=== PATIENT | female | born 1995 | race African-American/Black ===

== ENCOUNTER 2018-03-12 18:09 | Outpatient (CLI) | payer MEDICAID ==
[~2018-03-12] VITALS: Ht 162.6 cm; Wt 70.0 kg
[2018-03-12 18:00] VITALS: BP 120/59
[2018-03-12 18:53] LABS: MICROSCOPIC INDICATED
== END 2018-03-12 19:21 | disposition home or self-care (01) ==
LOC: LDOP 18:09
PROVIDERS: ATTEND Student in an Organized Health Care Education/Training Program
DX: O62.9 Abnormality of forces of labor, unspecified (principal); O26.893 Other specified pregnancy related conditions, third trimester; M54.9 Dorsalgia, unspecified; Z3A.33 33 weeks gestation of pregnancy
CPT/HCPCS: 36415; 59025; 81001; 82731; 87086; 99211; G0463

== ENCOUNTER 2018-04-15 08:24 | Inpatient (IN) | payer MEDICAID ==
[~2018-04-15] VITALS: Ht 162.6 cm; Wt 73.6 kg
[2018-04-15 08:30] VITALS: BP 113/70
[2018-04-15] MEDS ORDERED: OXYTOCIN 30U/ 0.9% NaCL 500ML 500 ML IV ONE (09:04)
[2018-04-15] MEDS ORDERED: OXYTOCIN 30U/ 0.9% NaCL 500ML 500 ML ONE (09:12)
[2018-04-15] MEDS ORDERED: FENTANYL PF 100 MCG/2ML ONE ×2 (09:12→16:32)
[2018-04-15] MEDS ORDERED: NEWBORN KIT ONE (09:12)
[2018-04-15] MEDS: LACTATED RINGERS 1,000 ML IV SCH ×2 (09:19→14:39)
[2018-04-15] MEDS: FENTANYL PF 100 MCG/2ML IVPush PRN ×2 (09:19→16:35)
[2018-04-15] MEDS ORDERED: FENTANYL PF 100 MCG/2ML IV PRN (09:30)
[2018-04-15] MEDS ORDERED: TERBUTALINE 1 MG/ML, 1ML IVPush PRN (09:30)
[2018-04-15 09:43] LABS: BASOPHILS # (AUTO) 0.01 x10^3/uL (0-0.1); BASOPHILS % (AUTO) 0 % (0-1); EOSINOPHILS # (AUTO) 0.06 x10^3/uL (0-0.4); EOSINOPHILS % (AUTO) 1 % (1-7); LYMPHOCYTES # (AUTO) 0.83 x10^3/uL (1-3.4); LYMPHOCYTES % (AUTO) 14 % (22-44); MD NO; MEAN CORPUSCULAR HEMOGLOBIN 27.3 pg (27.0-34.8); MEAN CORPUSCULAR HGB CONC 32.5 g/dL (32.4-35.8); MEAN PLATELET VOLUME 8.7 fL (7.4-10.4); MONOCYTES # (AUTO) 0.41 x10^3/uL (0.2-0.8); MONOCYTES % (AUTO) 7 % (2-9); NEUTROPHILS # (AUTO) 4.71 x10^3/uL (1.8-6.8); NEUTROPHILS % (AUTO) 78 % (42-75); PLATELET COUNT 294 x10^3/uL (130-400); RED BLOOD COUNT 4.08 x10^6/uL (3.82-5.3); RED CELL DISTRIBUTION WIDTH 15.8 % (9.6-15.2)
[2018-04-15] MEDS ORDERED: D5%-LACTATED RINGERS 1,000 ML IV SCH (10:00)
[2018-04-15] MEDS: OXYTOCIN 30U/ 0.9% NaCL 500ML 500 ML IV SCH (17:52)
[2018-04-15] MEDS ORDERED: MISOPROSTOL 200 MCG TABLET PR PRN (18:00)
[2018-04-15] MEDS ORDERED: GLYCERIN ADULT SUPP PR PRN (18:00)
[2018-04-15] MEDS ORDERED: ACETAMINOPHEN 325 MG TABLET PO PRN (18:00)
[2018-04-15] MEDS ORDERED: CARBOPROST TROMETHAMINE 250 MCG/ML, 1ML IM PRN (18:00)
[2018-04-15] MEDS ORDERED: HYDROcodone/APAP 5/325 TABLET PO PRN (18:00)
[2018-04-15] MEDS ORDERED: IBUPROFEN 800 MG TABLET PO PRN (18:00)
[2018-04-15] MEDS ORDERED: OXYcodone/APAP 5/325MG TABLET PO PRN (18:00)
[2018-04-15] MEDS ORDERED: BISACODYL 10 MG SUPP PR PRN (18:00)
[2018-04-15] MEDS ORDERED: METHYLERGONOVINE 0.2 MG/ML IM PRN (18:00)
[2018-04-15] MEDS ORDERED: IBUPROFEN 600 MG TABLET ONE (18:36)
[2018-04-15] MEDS: IBUPROFEN 600 MG TABLET PO PRN (18:40)
[2018-04-15 20:45] VITALS: BP 108/73
[2018-04-16] MEDS: IBUPROFEN 600 MG TABLET PO PRN ×2 (01:12→08:11)
[2018-04-16 01:15] VITALS: BP 125/72
[2018-04-16 02:13] LABS: BASOPHILS # (AUTO) 0.01 x10^3/uL (0-0.1); BASOPHILS % (AUTO) 0 % (0-1); EOSINOPHILS # (AUTO) 0.08 x10^3/uL (0-0.4); EOSINOPHILS % (AUTO) 1 % (1-7); LYMPHOCYTES # (AUTO) 1.01 x10^3/uL (1-3.4); LYMPHOCYTES % (AUTO) 12 % (22-44); MD NO; MEAN CORPUSCULAR HEMOGLOBIN 27.8 pg (27.0-34.8); MEAN CORPUSCULAR HGB CONC 32.5 g/dL (32.4-35.8); MEAN CORPUSCULAR VOLUME 85.6 fL (80-100); MEAN PLATELET VOLUME 8.6 fL (7.4-10.4); MONOCYTES % (AUTO) 10 % (2-9); NEUTROPHILS # (AUTO) 6.75 x10^3/uL (1.8-6.8); NEUTROPHILS % (AUTO) 77 % (42-75); PLATELET COUNT 292 x10^3/uL (130-400); RED BLOOD COUNT 3.81 x10^6/uL (3.82-5.3)
[2018-04-16] MEDS: OXYTOCIN 30U/ 0.9% NaCL 500ML 500 ML IV SCH ×3 (03:52→23:52)
[2018-04-16 04:30] VITALS: BP 122/77
[2018-04-16 08:07] VITALS: BP 115/78
[2018-04-16] MEDS: DOCUSATE 100 MG CAPSULE PO PRN (08:11)
[2018-04-16] MEDS: PRENATAL VIT/IRON/FA 1 EACH TABLET PO SCH (08:11)
[2018-04-16 12:28] VITALS: BP 111/74
[2018-04-16 19:40] VITALS: BP 122/82
[2018-04-17] MEDS: PRENATAL VIT/IRON/FA 1 EACH TABLET PO SCH (07:43)
[2018-04-17] MEDS: DOCUSATE 100 MG CAPSULE PO PRN (07:43)
[2018-04-17 08:20] VITALS: BP 118/77
[2018-04-17] MEDS: OXYTOCIN 30U/ 0.9% NaCL 500ML 500 ML IV SCH (09:52)
[2018-04-17] MEDS ORDERED: IBUP-1222 PO (14:20)
== END 2018-04-17 17:24 | disposition home or self-care (01) | DRG 775 ==
LOC: LDOP 08:24 → LDIP 09:07 → 2NW 19:56
PROVIDERS: ADMIT Student in an Organized Health Care Education/Training Program; ATTEND Student in an Organized Health Care Education/Training Program
PROC: 10E0XZZ Delivery of Products of Conception, External Approach (ICD-10-PCS; principal; 2018-04-15)
PROC: 10907ZC Drainage of Amniotic Fluid, Therapeutic from Products of Conception, Via Natural or Artificial Opening (ICD-10-PCS; 2018-04-15)
DX: O80 Encounter for full-term uncomplicated delivery (principal); Z37.0 Single live birth; Z3A.38 38 weeks gestation of pregnancy
CPT/HCPCS: 36415; 85025; 86850; 86900; J3010; J7120

== ENCOUNTER 2018-12-30 08:29 | Emergency (ER) | payer MEDICAID ==
[~2018-12-30] VITALS: Ht 162.6 cm; Wt 64.5 kg
[~2018-12-30 08:29] MED LIST: IBUP-1222 PO
--- NOTE | 2018-12-30 08:48 | NUR ---
PT. IS A & O X 4 WITH C/O VAGINAL BLEEDING AND CRAMPING THAT STARTED TODAY. PT. STATES BLEEDING HAS SUBSIDED SINCE THIS MORNING. PT. STATES SHE IS . PT. REMAINS PINK, WARM AND DRY. LUNGS ARE CTA. MM ARE PINK AND MOIST WITH PULSES +2 THROUGHOUT. PT. IS RESTING WITH THE HOB ELEVATED GREATER THAN 30 DEGREES. SIDERAILS REMAIN UP X 2 WITH THE CALL LIGHT IN PLACE.
--- NOTE | 2018-12-30 09:04 | NUR ---
RECEIVED REPORT FROM EVELIO KELLY.
[2018-12-30 09:20] LABS: BASOPHILS # (AUTO) 0.02 x10^3/uL (0-0.1); BASOPHILS % (AUTO) 1 % (0-1); EOSINOPHILS # (AUTO) 0.12 x10^3/uL (0-0.4); EOSINOPHILS % (AUTO) 4 % (1-7); LYMPHOCYTES # (AUTO) 1.09 x10^3/uL (1-3.4); LYMPHOCYTES % (AUTO) 35 % (22-44); MD NO; MEAN CORPUSCULAR HEMOGLOBIN 28.3 pg (27.0-34.8); MEAN CORPUSCULAR HGB CONC 32.6 g/dL (32.4-35.8); MEAN CORPUSCULAR VOLUME 86.9 fL (80-100); MEAN PLATELET VOLUME 8.3 fL (7.4-10.4); MONOCYTES # (AUTO) 0.31 x10^3/uL (0.2-0.8); MONOCYTES % (AUTO) 10 % (2-9); NEUTROPHILS # (AUTO) 1.55 x10^3/uL (1.8-6.8); NEUTROPHILS % (AUTO) 50 % (42-75); PLATELET COUNT 289 x10^3/uL (130-400); RED BLOOD COUNT 4.39 x10^6/uL (3.82-5.3); RED CELL DISTRIBUTION WIDTH 14.7 % (9.6-15.2)
--- NOTE | 2018-12-30 09:27 | NUR ---
PT TAKEN TO US IN STABLE CONDITION.
--- NOTE | 2018-12-30 10:02 | NUR ---
REPORT GIVEN TO EVELIO KENT.
--- NOTE | 2018-12-30 10:05 | NUR ---
PT REPORT FROM EVELIO KEENAN. PT CARE TO BE ASSUMED.
--- NOTE | 2018-12-30 10:06 | NUR ---
PT SITTING QUIETLY ON [place], USING CELL PHONE, SIDE RAILS UP X 2, CALL LIGHT W/IN REACH. INFORMED PT ERP WAITING FOR TEST RESULTS. C/O SUPRAPUBIC AREA PAIN - STARTED YESTERDAY; VAG BLEED W/ CLOTS. NO MEDS TAKEN FOR SX. DENIES N/V. LMP: BEGINNING NOVEMBER 2018. SEXUALLY ACTIVE - UNPROTECTIVE. LAST ORAL INTAKE: LAST NOC.
[2018-12-30 10:09] LABS: ALANINE AMINOTRANSFERASE 25 U/L (12-78); ALBUMIN 4.3 g/dL (3.4-5.0); CALCIUM 8.7 mg/dL (8.5-10.1); CREATININE 0.79 mg/dL (0.55-1.02)
[2018-12-30 10:13] VITALS: BP 108/81
[2018-12-30 10:13] LABS: ALKALINE PHOSPHATASE 69 U/L (45-117); ANION GAP 5 mmol/L (5-15); CHLORIDE 108 mmol/L (98-107); TOTAL PROTEIN 8.2 g/dL (6.4-8.2)
--- NOTE | 2018-12-30 11:02 | NUR ---
WATER PROVIDED TO PT PER DR TREJO.
[2018-12-30 11:37] LABS: CULTURE INDICATED? YES; MICROSCOPIC INDICATED
--- NOTE | 2018-12-30 12:15 | NUR ---
Patient/Caregiver given discharge instructions and they have confirmed that they understand the instructions. Patient ambulatory with steady gait.
== END 2018-12-30 12:17 | disposition home or self-care (01) ==
LOC: ED 09:02
DX: N30.01 Acute cystitis with hematuria (principal); N93.8 Other specified abnormal uterine and vaginal bleeding
CPT/HCPCS: 36415; 76801; 80053; 81001; 84702; 85025; 87077; 87086; 87186; 99284